=== PATIENT | female | born 1965 | race Two or more races ===

== ENCOUNTER 2017-04-16 15:07 | Emergency (ER) | payer OTHER ==
[~2017-04-16] VITALS: Ht 165.1 cm; Wt 119.7 kg
[2017-04-16 15:22] VITALS: BP 151/97
[2017-04-16 16:22] LABS: Urine Bilirubin Negative (Negative); Urine Blood Negative /uL (Negative); Urine Color Yellow (Yellow); Urine Glucose Normal (Normal); Urine Ketone Negative (Negative); Urine Nitrite Negative (Negative); Urine RBC <1 /hpf (0 - 4); Urine Squamous Epithelial Cell FEW /hpf (<5)
[2017-04-16 17:51] LABS: Eosinophils # (auto) 0.3 uL; Mean Corpuscular Hemoglobin 25.6 pg (28.0-32.0); Monocytes # (auto) 0.6 uL; Nucleated Red Blood Cells % 0.2 %
[2017-04-16 17:53] LABS: Basophils # (auto) 0.1 uL; Basophils % (auto) 0.9 % (0.0-2.0); Eosinophils % (auto) 4.8 % (0.0-7.0); Hematocrit 41.1 % (36.0-46.0); Hemoglobin 13.4 g/dL (12.2-16.2); Lymphocytes # (auto) 3.2 uL; Lymphocytes % (auto) 45.8 % (10.0-50.0); Mean Corpuscular Hgb Conc. 32.7 g/dL (32.0-36.0); Mean Corpuscular Volume 78.4 fL (80.0-100.0); Monocytes % (auto) 7.9 % (0.0-12.0); Neutrophils # (auto) 2.9 uL; Neutrophils % (auto) 40.6 % (37.0-80.0); Platelet Count (auto) 300 10^3/uL (140-450); Red Cell Distribution Width 15.9 % (11.8-14.3)
[2017-04-16 18:03] LABS: Albumin 3.7 g/dL (3.4-5.0); Anion Gap 6 (5-15); Aspartate Aminotransferase 5 U/L (15-37); BUN/Creatinine Ratio 11.4; Blood Urea Nitrogen 9 mg/dL (7-18); Calcium 9.7 mg/dL (8.5-10.1); Carbon Dioxide 28 mmol/L (21-32); Chloride 103 mmol/L (98-107); GFR African American 98 mL/min; GFR Non-African American 81 mL/min; Glucose 81 mg/dL (74-106); Magnesium 2.2 mg/dL (1.6-2.6); Sodium 137 mmol/L (136-145)
[2017-04-16 18:08] LABS: Alkaline Phosphatase 53 U/L (45-117); Bilirubin, Total 0.3 mg/dL (0.2-1.0); Total Protein 8.3 g/dL (6.4-8.2)
== END 2017-04-16 21:08 | disposition left against medical advice (07) ==
LOC: ER 15:12
DX: R07.9 Chest pain, unspecified (principal); Z53.21 Procedure and treatment not carried out due to patient leaving prior to being seen by health care provider
CPT/HCPCS: 36415; 71010; 80053; 81001; 83735; 84484; 85025; 93005

== ENCOUNTER 2017-05-01 19:13 | Emergency (ER) | payer OTHER ==
[~2017-05-01] VITALS: Ht 165.1 cm; Wt 119.3 kg
[2017-05-01 20:07] LABS: Urine RBC None Seen /hpf (0 - 4)
[2017-05-01 20:24] LABS: Basophils # (auto) 0.1 uL; Hemoglobin 13.4 g/dL (12.2-16.2); Lymphocytes # (auto) 3.1 uL; Neutrophils # (auto) 3.3 uL
[2017-05-01 20:25] LABS: Urine Bilirubin Negative (Negative); Urine Blood Negative /uL (Negative); Urine Color Straw (Yellow); Urine Glucose Normal (Normal); Urine Ketone Negative (Negative); Urine Nitrite Negative (Negative); Urine Squamous Epithelial Cell FEW /hpf (<5); Urine Urobilinogen Normal (Negative); Urine pH 6.5 (5.0-8.0)
[2017-05-01 20:26] LABS: Eosinophils # (auto) 0.4 uL; Eosinophils % (auto) 4.9 % (0.0-7.0); Hematocrit 42.3 % (36.0-46.0); Lymphocytes % (auto) 41.6 % (10.0-50.0); Mean Corpuscular Hemoglobin 24.7 pg (28.0-32.0); Mean Corpuscular Hgb Conc. 31.7 g/dL (32.0-36.0); Mean Corpuscular Volume 77.8 fL (80.0-100.0); Mean Platelet Volume 8.1 fL (6.9-10.8); Monocytes # (auto) 0.5 uL; Monocytes % (auto) 7.1 % (0.0-12.0); Neutrophils % (auto) 45.4 % (37.0-80.0); Platelet Count (auto) 292 10^3/uL (140-450); Red Cell Distribution Width 15.9 % (11.8-14.3); White Blood Cell 7.4 10^3/uL (4.4-10.8)
[2017-05-01 20:52] LABS: Albumin 3.7 g/dL (3.4-5.0); BUN/Creatinine Ratio 10.8; Bilirubin, Total 0.2 mg/dL (0.2-1.0); Calcium 9.6 mg/dL (8.5-10.1); Magnesium 2.4 mg/dL (1.6-2.6); Potassium 3.9 mmol/L (3.5-5.1); Total Protein 7.9 g/dL (6.4-8.2)
[2017-05-02 03:34] VITALS: BP 128/78
== END 2017-05-02 05:18 | disposition home or self-care (01) ==
LOC: ER 19:13
DX: R07.9 Chest pain, unspecified (principal); I10 Essential (primary) hypertension; F17.210 Nicotine dependence, cigarettes, uncomplicated
CPT/HCPCS: 36415; 71010; 80053; 81001; 83735; 84443; 84484; 85025; 93005

== ENCOUNTER 2017-05-29 13:12 | Emergency (ER) | payer OTHER ==
[~2017-05-29] VITALS: Ht 165.1 cm; Wt 117.9 kg
[2017-05-29] MEDS ORDERED: NITROGLYCERIN 0.4 MG SL TAB SL ONE (13:45)
[2017-05-29] MEDS ORDERED: ASPirin 325 MG TAB PO ONE (13:45)
[2017-05-29 14:44] LABS: Basophils # (auto) 0.1 uL; Hematocrit 43.1 % (36.0-46.0); Lymphocytes # (auto) 2.5 uL; Monocytes # (auto) 0.4 uL; Monocytes % (auto) 7.8 % (0.0-12.0)
[2017-05-29 14:46] LABS: Basophils % (auto) 1.7 % (0.0-2.0); Eosinophils # (auto) 0.4 uL; Eosinophils % (auto) 7.5 % (0.0-7.0); Hemoglobin 14.1 g/dL (12.2-16.2); Lymphocytes % (auto) 47.3 % (10.0-50.0); Mean Corpuscular Hemoglobin 25.2 pg (28.0-32.0); Mean Corpuscular Hgb Conc. 32.6 g/dL (32.0-36.0); Mean Corpuscular Volume 77.3 fL (80.0-100.0); Neutrophils # (auto) 1.9 uL; Neutrophils % (auto) 35.7 % (37.0-80.0); Platelet Count (auto) 293 10^3/uL (140-450); Red Blood Cells 5.58 10^6/uL (4.0-5.20); Red Cell Distribution Width 15.8 % (11.8-14.3); White Blood Cell 5.3 10^3/uL (4.4-10.8)
[2017-05-29 15:13] LABS: Albumin 3.7 g/dL (3.4-5.0); BUN/Creatinine Ratio 13.6; Bilirubin, Total 0.3 mg/dL (0.2-1.0); Calcium 9.2 mg/dL (8.5-10.1); Total Protein 8.1 g/dL (6.4-8.2)
[2017-05-29 16:30] VITALS: BP 117/73
== END 2017-05-29 16:47 | disposition home or self-care (01) ==
LOC: ER 13:12
DX: R07.89 Other chest pain (principal); R06.02 Shortness of breath; I10 Essential (primary) hypertension; F17.210 Nicotine dependence, cigarettes, uncomplicated
CPT/HCPCS: 36415; 71046; 80053; 84484; 85025; 93005; 94761

== ENCOUNTER 2017-07-22 16:14 | Inpatient (IN) | payer OTHER ==
[~2017-07-22] VITALS: Ht 167.6 cm; Wt 124.9 kg
[2017-07-22 16:47] LABS: Basophils # (auto) 0.1 uL; Basophils % (auto) 0.9 % (0.0-2.0); Eosinophils # (auto) 0.4 uL; Eosinophils % (auto) 5.4 % (0.0-7.0); Hematocrit 41.1 % (36.0-46.0); Hemoglobin 13.5 g/dL (12.2-16.2); Lymphocytes # (auto) 2.8 uL; Lymphocytes % (auto) 38.7 % (10.0-50.0); Mean Corpuscular Hemoglobin 25.5 pg (28.0-32.0); Mean Corpuscular Hgb Conc. 32.8 g/dL (32.0-36.0); Monocytes # (auto) 0.6 uL; Monocytes % (auto) 8.6 % (0.0-12.0); Neutrophils # (auto) 3.4 uL; Neutrophils % (auto) 46.4 % (37.0-80.0); Nucleated Red Blood Cells % 0.1 %; Platelet Count (auto) 314 10^3/uL (140-450); Red Blood Cells 5.27 10^6/uL (4.0-5.20); Red Cell Distribution Width 18.1 % (11.8-14.3); White Blood Cell 7.2 10^3/uL (4.4-10.8)
[2017-07-22 17:11] LABS: Alanine Aminotransferase 13 U/L (13-56); Albumin 3.7 g/dL (3.4-5.0); Alkaline Phosphatase 54 U/L (45-117); Anion Gap 8 (5-15); Aspartate Aminotransferase 7 U/L (15-37); BUN/Creatinine Ratio 15.6; Bilirubin, Total 0.2 mg/dL (0.2-1.0); Blood Urea Nitrogen 12 mg/dL (7-18); Calcium 9.8 mg/dL (8.5-10.1); Carbon Dioxide 26 mmol/L (21-32); Chloride 103 mmol/L (98-107); GFR African American 100 mL/min; GFR Non-African American 83 mL/min; Glucose 101 mg/dL (74-106); Sodium 137 mmol/L (136-145); Total Protein 7.8 g/dL (6.4-8.2)
[2017-07-22] MEDS ORDERED: ONDANSETRON HCL 4 MG/2 ML VIAL IV ONE (20:15)
[2017-07-22] MEDS ORDERED: ASPirin 81 mg TAB PO ONE (20:15)
[2017-07-22] MEDS ORDERED: MORPHINE SULFATE 4 MG/ML SYR/VIAL IV ONE (20:15)
[2017-07-22] MEDS ORDERED: HYDROcodone-ACET 5/325MG TAB PO PRN (21:00)
[2017-07-22] MEDS ORDERED: ONDANSETRON HCL 4 MG/2 ML VIAL IV PRN (21:00)
[2017-07-22] MEDS ORDERED: TEMAZEPAM 15 MG CAP PO PRN (21:00)
[2017-07-22 21:04] LABS: Urine Bacteria FEW /hpf (None Seen); Urine Blood 3+ /uL (Negative); Urine Specific Gravity 1.013 (1.001-1.035); Urine WBC 1 /hpf (0 - 5)
[2017-07-22 21:27] LABS: Cholesterol 198 mg/dL (< 200); HDL Cholesterol 35 mg/dL (40-59); LDL Cholesterol 144 mg/dL (< 100); Triglycerides 208 mg/dL (< 150)
[2017-07-22 22:00] VITALS: BP 127/92
[2017-07-22] MEDS ORDERED: ATORVASTATIN 20 MG TAB PO SCH (22:00)
[2017-07-22] MEDS: FAMOTIDINE 20 MG TAB PO SCH (22:43)
[2017-07-22] MEDS ORDERED: cefTRIAXone 1GM/10ml IVPUSH 10 ML IV ONE (23:30)
[2017-07-22] MEDS: ACETAMINOPHEN 325 MG TAB PO PRN (23:55)
[2017-07-22] MEDS: NITROGLYCERIN 0.4 MG SL TAB SL PRN (23:57)
[2017-07-23 05:30] VITALS: BP 103/61
[2017-07-23 05:48] LABS: Basophils # (auto) 0 uL; Eosinophils # (auto) 0.4 uL; Neutrophils # (auto) 2.8 uL; Nucleated Red Blood Cells % 0.2 %
[2017-07-23 05:52] LABS: Basophils % (auto) 0.6 % (0.0-2.0); Eosinophils % (auto) 5.6 % (0.0-7.0); Hematocrit 37.3 % (36.0-46.0); Lymphocytes # (auto) 2.6 uL; Lymphocytes % (auto) 39.9 % (10.0-50.0); Mean Corpuscular Hemoglobin 24.9 pg (28.0-32.0); Mean Corpuscular Hgb Conc. 32.3 g/dL (32.0-36.0); Mean Corpuscular Volume 77.3 fL (80.0-100.0); Monocytes # (auto) 0.7 uL; Monocytes % (auto) 11.2 % (0.0-12.0); Neutrophils % (auto) 42.7 % (37.0-80.0); Platelet Count (auto) 281 10^3/uL (140-450); Red Blood Cells 4.83 10^6/uL (4.0-5.20); Red Cell Distribution Width 17.7 % (11.8-14.3); White Blood Cell 6.6 10^3/uL (4.4-10.8)
[2017-07-23 06:21] LABS: Albumin 3.2 g/dL (3.4-5.0); Bilirubin, Total 0.3 mg/dL (0.2-1.0); Calcium 9.6 mg/dL (8.5-10.1); Total Protein 6.8 g/dL (6.4-8.2)
[2017-07-23 09:00] VITALS: BP 98/59
[2017-07-23] MEDS: cefTRIAXone 1GM/10ml IVPUSH 10 ML IV SCH (09:29)
[2017-07-23] MEDS: LISINOPRIL 20 MG TAB PO SCH (10:00)
[2017-07-23] MEDS: HCTZ 25 MG TAB PO SCH (10:00)
[2017-07-23] MEDS: ASPirin 81 mg TAB PO SCH (10:03)
[2017-07-23] MEDS: FAMOTIDINE 20 MG TAB PO SCH ×2 (10:04→21:47)
[2017-07-23] MEDS: ENOXAPARIN SOD 40 MG/0.4 ML SYRINGE SC SCH (10:35)
[2017-07-23 13:00] VITALS: BP 109/77
[2017-07-23] MEDS: ACETAMINOPHEN 325 MG TAB PO PRN (14:00)
[2017-07-23 17:00] VITALS: BP 116/78
[2017-07-23] MEDS: MORPHINE SULFATE 4 MG/ML SYR/VIAL IV PRN (20:56)
[2017-07-23 21:44] VITALS: BP 125/69
[2017-07-23] MEDS: ATORVASTATIN 20 MG TAB PO SCH (21:47)
[2017-07-24 05:00] VITALS: BP 110/70
[2017-07-24] MEDS: ACETAMINOPHEN 325 MG TAB PO PRN ×3 (05:19→19:55)
[2017-07-24 08:25] VITALS: BP 109/71
[2017-07-24] MEDS: cefTRIAXone 1GM/10ml IVPUSH 10 ML IV SCH (08:50)
[2017-07-24] MEDS: HCTZ 25 MG TAB PO SCH (10:00)
[2017-07-24] MEDS: LISINOPRIL 20 MG TAB PO SCH (10:00)
[2017-07-24] MEDS: FAMOTIDINE 20 MG TAB PO SCH ×2 (10:53→21:44)
[2017-07-24] MEDS: ASPirin 81 mg TAB PO SCH (10:53)
[2017-07-24] MEDS: ENOXAPARIN SOD 40 MG/0.4 ML SYRINGE SC SCH (10:53)
[2017-07-24 12:38] VITALS: BP 119/75
[2017-07-24 17:03] VITALS: BP 118/62
[2017-07-24] MEDS: MORPHINE SULFATE 4 MG/ML SYR/VIAL IV PRN (21:37)
[2017-07-24] MEDS: ATORVASTATIN 20 MG TAB PO SCH (21:44)
[2017-07-24] MEDS: NITROGLYCERIN 0.4 MG SL TAB SL PRN (21:44)
[2017-07-24 22:25] VITALS: BP 123/77
[2017-07-25 05:06] VITALS: BP 105/69
[2017-07-25 05:16] LABS: Basophils # (auto) 0 uL; Basophils % (auto) 0.7 % (0.0-2.0); Eosinophils # (auto) 0.4 uL; Lymphocytes # (auto) 2.8 uL; Neutrophils # (auto) 2.3 uL; White Blood Cell 6.1 10^3/uL (4.4-10.8)
[2017-07-25 05:19] LABS: Eosinophils % (auto) 6.5 % (0.0-7.0); Hematocrit 37.7 % (36.0-46.0); Hemoglobin 12.2 g/dL (12.2-16.2); Lymphocytes % (auto) 46.3 % (10.0-50.0); Mean Corpuscular Hemoglobin 25.3 pg (28.0-32.0); Mean Corpuscular Hgb Conc. 32.4 g/dL (32.0-36.0); Mean Corpuscular Volume 77.3 fL (80.0-100.0); Monocytes # (auto) 0.5 uL; Monocytes % (auto) 8.9 % (0.0-12.0); Neutrophils % (auto) 37.6 % (37.0-80.0); Nucleated Red Blood Cells % 0.2 %; Platelet Count (auto) 273 10^3/uL (140-450); Red Blood Cells 4.87 10^6/uL (4.0-5.20); Red Cell Distribution Width 17.4 % (11.8-14.3)
[2017-07-25 05:26] LABS: BUN/Creatinine Ratio 15.5; Calcium 9.5 mg/dL (8.5-10.1)
[2017-07-25 08:13] VITALS: BP 94/58
[2017-07-25] MEDS: cefTRIAXone 1GM/10ml IVPUSH 10 ML IV SCH (08:51)
[2017-07-25] MEDS: HCTZ 25 MG TAB PO SCH (09:51)
[2017-07-25] MEDS: ASPirin 81 mg TAB PO SCH (09:51)
[2017-07-25] MEDS: ENOXAPARIN SOD 40 MG/0.4 ML SYRINGE SC SCH (09:52)
[2017-07-25] MEDS: LISINOPRIL 20 MG TAB PO SCH (09:52)
[2017-07-25] MEDS: FAMOTIDINE 20 MG TAB PO SCH ×2 (09:52→21:48)
[2017-07-25 13:02] VITALS: BP 120/76
[2017-07-25 17:02] VITALS: BP 118/81
[2017-07-25] MEDS: DOCUSATE SOD 100 MG CAP PO PRN (17:57)
[2017-07-25] MEDS: ACETAMINOPHEN 325 MG TAB PO PRN (17:58)
[2017-07-25] MEDS: ATORVASTATIN 20 MG TAB PO SCH (21:48)
[2017-07-25 22:43] VITALS: BP 132/89
[2017-07-26 05:24] VITALS: BP 109/65
[2017-07-26 09:00] VITALS: BP 111/71
[2017-07-26] MEDS: cefTRIAXone 1GM/10ml IVPUSH 10 ML IV SCH (09:40)
[2017-07-26 13:00] VITALS: BP 123/62
[2017-07-26] MEDS: FAMOTIDINE 20 MG TAB PO SCH ×2 (13:52→21:30)
[2017-07-26] MEDS: LISINOPRIL 20 MG TAB PO SCH (13:52)
[2017-07-26] MEDS: ASPirin 81 mg TAB PO SCH (13:53)
[2017-07-26] MEDS: DOCUSATE SOD 100 MG CAP PO PRN ×2 (13:54→20:08)
[2017-07-26] MEDS: HCTZ 25 MG TAB PO SCH (13:54)
[2017-07-26] MEDS: ENOXAPARIN SOD 40 MG/0.4 ML SYRINGE SC SCH (13:55)
[2017-07-26 18:22] VITALS: BP 112/63
[2017-07-26] MEDS: ATORVASTATIN 20 MG TAB PO SCH (21:30)
[2017-07-26 22:00] VITALS: BP 123/75
[2017-07-27] VITALS (7 sets, daily range): BP systolic 103–132; BP diastolic 58–107
[2017-07-27] MEDS ORDERED: ADENOSINE 105 MG in GIVE UN-DILUTED 0 ML IV ONE (08:15)
[2017-07-27] MEDS: cefTRIAXone 1GM/10ml IVPUSH 10 ML IV SCH (11:37)
[2017-07-27] MEDS: ENOXAPARIN SOD 40 MG/0.4 ML SYRINGE SC SCH (11:37)
[2017-07-27] MEDS: ASPirin 81 mg TAB PO SCH (11:38)
[2017-07-27] MEDS: HCTZ 25 MG TAB PO SCH (11:39)
[2017-07-27] MEDS: FAMOTIDINE 20 MG TAB PO SCH (11:39)
[2017-07-27] MEDS: LISINOPRIL 20 MG TAB PO SCH (11:39)
[2017-07-27] MEDS ORDERED: HYDR25TA4 PO (17:49)
[2017-07-27] MEDS ORDERED: LISI-713 PO (17:49)
[2017-07-27] MEDS ORDERED: OME20T PO (17:49)
== END 2017-07-27 19:25 | disposition home or self-care (01) | DRG 198 ==
LOC: ER 16:14 → TELE-WESTW 16:15
PROVIDERS: ADMIT Nurse Practitioner; ATTEND Internal Medicine
DX: I25.10 Atherosclerotic heart disease of native coronary artery without angina pectoris (principal); Z68.41 Body mass index [BMI] 40.0-44.9, adult; I10 Essential (primary) hypertension; E66.01 Morbid (severe) obesity due to excess calories; E78.5 Hyperlipidemia, unspecified; F17.210 Nicotine dependence, cigarettes, uncomplicated; M10.9 Gout, unspecified; G47.00 Insomnia, unspecified; K59.00 Constipation, unspecified; Z87.11 Personal history of peptic ulcer disease; Z71.3 Dietary counseling and surveillance; Z53.21 Procedure and treatment not carried out due to patient leaving prior to being seen by health care provider
CPT/HCPCS: 36415; 71046; 78452; 80048; 80053; 80061; 81001; 83735; 83880; 84443; 84484; 85025; 85379; 93005; 93017; 93306; 94761; 96374; 96375; 96376; J0153; J2405

== ENCOUNTER 2018-06-16 10:44 | Emergency (ER) | payer SELFPAY ==
[~2018-06-16] VITALS: Ht 165.1 cm; Wt 119.7 kg
[~2018-06-16 10:44] MED LIST: HYDR25TA4 PO; LISI-713 PO; OME20T PO
[2018-06-16] MEDS ORDERED: ASPirin 81 mg TAB PO ONE (11:00)
[2018-06-16 12:13] LABS: Basophils # (auto) 0.1 uL; Eosinophils # (auto) 0.4 uL; Eosinophils % (auto) 8.1 % (0.0-7.0); Hemoglobin 14.1 g/dL (12.2-16.2); Lymphocytes # (auto) 2.1 uL; Lymphocytes % (auto) 40.5 % (10.0-50.0); Mean Corpuscular Hemoglobin 25.7 pg (28.0-32.0); Mean Corpuscular Hgb Conc. 32.8 g/dL (32.0-36.0); Mean Corpuscular Volume 78.3 fL (80.0-100.0); Monocytes # (auto) 0.4 uL; Monocytes % (auto) 8.4 % (0.0-12.0); Neutrophils # (auto) 2.2 uL; Nucleated Red Blood Cells % 0.1 %; Platelet Count (auto) 282 10^3/uL (140-450); White Blood Cell 5.2 10^3/uL (4.4-10.8)
[2018-06-16 12:35] LABS: Alanine Aminotransferase 12 U/L (13-56); Albumin 3.4 g/dL (3.4-5.0); Anion Gap 8 (5-15); Aspartate Aminotransferase 6 U/L (15-37); BUN/Creatinine Ratio 11.5; Blood Urea Nitrogen 9 mg/dL (7-18); Calcium 9.4 mg/dL (8.5-10.1); Carbon Dioxide 27 mmol/L (21-32); Chloride 104 mmol/L (98-107); GFR African American 99 mL/min; GFR Non-African American 81 mL/min; Glucose 84 mg/dL (74-106); Magnesium 2.4 mg/dL (1.6-2.6); Potassium 4.3 mmol/L (3.5-5.1); Sodium 139 mmol/L (136-145)
[2018-06-16 12:40] LABS: Alkaline Phosphatase 53 U/L (45-117); Bilirubin, Total 0.4 mg/dL (0.2-1.0); Total Protein 7.9 g/dL (6.4-8.2)
[2018-06-16 13:19] VITALS: BP 130/85
[2018-06-16 15:03] LABS: INR 0.96 (0.9-1.15); Partial Thromboplastin Time 27.7 sec (23.78-33.04); Prothrombin Time 10.3 sec (9.27-12.13)
== END 2018-06-16 13:25 | disposition home or self-care (01) ==
LOC: ER 10:50
DX: R07.89 Other chest pain (principal); I10 Essential (primary) hypertension; F17.210 Nicotine dependence, cigarettes, uncomplicated; Z79.899 Other long term (current) drug therapy
CPT/HCPCS: 36415; 71045; 80053; 83735; 83880; 84484; 85025; 85610; 85730; 93005; 94761

== ENCOUNTER 2020-02-17 12:54 | Emergency (ER) | payer MEDICAID, OTHER ==
[~2020-02-17] VITALS: Ht 162.6 cm; Wt 120.2 kg
[2020-02-17 14:02] LABS: Basophils # (auto) 0 10 ^3/uL (0-0.2); Eosinophils # (auto) 0.3 10 ^3/uL (0-0.8); Hemoglobin 12.4 g/dL (12.2-16.2); Monocytes # (auto) 0.4 10 ^3/uL (0-1.3); Neutrophils # (auto) 2.8 10 ^3/uL (1.6-8.6); White Blood Cell 5.7 10^3/uL (4.4-10.8)
[2020-02-17 14:03] LABS: Basophils % (auto) 0.8 % (0.0-2.0); Eosinophils % (auto) 4.7 % (0.0-7.0); Hematocrit 38.6 % (36.0-46.0); Lymphocytes # (auto) 2.3 10 ^3/uL (0.4-5.4); Lymphocytes % (auto) 39.4 % (10.0-50.0); Mean Corpuscular Volume 75.1 fL (80.0-100.0); Monocytes % (auto) 6.7 % (0.0-12.0); Neutrophils % (auto) 48.4 % (37.0-80.0); Nucleated Red Blood Cells % 0.2 %; Platelet Count (auto) 287 10^3/uL (140-450); Red Blood Cells 5.14 10^6/uL (4.0-5.20); Red Cell Distribution Width 17.5 % (11.8-14.3)
[2020-02-17 14:08] LABS: INR 0.98 (0.9-1.15); Partial Thromboplastin Time 26.2 sec (23.0-31.2)
[2020-02-17 14:12] LABS: Alanine Aminotransferase 12 U/L (13-56); Albumin 3.2 g/dL (3.4-5.0); Anion Gap 5 (5-15); Aspartate Aminotransferase 5 U/L (15-37); BUN/Creatinine Ratio 15.4; Blood Urea Nitrogen 12 mg/dL (7-18); Calcium 9.3 mg/dL (8.5-10.1); Carbon Dioxide 27 mmol/L (21-32); Chloride 109 mmol/L (98-107); GFR African American 98 mL/min; GFR Non-African American 81 mL/min; Glucose 95 mg/dL (74-106); Potassium 4.2 mmol/L (3.5-5.1); Sodium 141 mmol/L (136-145)
[2020-02-17 14:16] LABS: Alkaline Phosphatase 57 U/L (45-117); Bilirubin, Total 0.3 mg/dL (0.2-1.0)
[2020-02-17 14:26] LABS: Urine Bacteria FEW /hpf (None Seen); Urine Blood Negative /uL (Negative); Urine Mucus FEW (None Seen); Urine Specific Gravity 1.023 (1.001-1.035); Urine WBC 1 /hpf (0 - 5)
[2020-02-17 20:00] VITALS: BP 156/85
== END 2020-02-17 22:45 | disposition home or self-care (01) ==
LOC: ER 12:54
DX: R07.2 Precordial pain (principal); K21.9 Gastro-esophageal reflux disease without esophagitis; M54.12 Radiculopathy, cervical region; M47.812 Spondylosis without myelopathy or radiculopathy, cervical region; I10 Essential (primary) hypertension; M10.9 Gout, unspecified; F17.210 Nicotine dependence, cigarettes, uncomplicated
CPT/HCPCS: 36415; 71046; 72125; 80053; 81001; 84484; 85025; 85379; 85610; 85730; 93005

== ENCOUNTER 2021-11-08 11:11 | Emergency (ER) | payer MEDICAID ==
[~2021-11-08] VITALS: Ht 162.6 cm; Wt 117.5 kg
[2021-11-08 11:51] VITALS: BP 144/105
== END 2021-11-08 12:40 | disposition home or self-care (01) ==
LOC: ER 11:11
DX: I83.91 Asymptomatic varicose veins of right lower extremity (principal); E66.01 Morbid (severe) obesity due to excess calories; Z68.41 Body mass index [BMI] 40.0-44.9, adult
CPT/HCPCS: 93971

== ENCOUNTER 2022-04-24 13:19 | Inpatient (IN) | payer MEDICAID ==
[~2022-04-24] VITALS: Ht 165.1 cm; Wt 129.5 kg
[2022-04-24] MEDS ORDERED: SODIUM CHLORIDE 0.9% 1,000 ML IV ONE (13:30)
[2022-04-24 14:04] LABS: Hemoglobin 13.6 g/dL (12.2-16.2); Red Cell Distribution Width 17.1 % (11.8-14.3)
[2022-04-24 14:06] LABS: Hematocrit 41.8 % (36.0-46.0); Mean Corpuscular Hemoglobin 25.2 pg (28.0-32.0); Mean Corpuscular Hgb Conc. 32.5 g/dL (32.0-36.0); Mean Corpuscular Volume 77.7 fL (80.0-100.0); Red Blood Cells 5.38 10^6/uL (4.0-5.20); White Blood Cell 8.2 10^3/uL (4.4-10.8)
[2022-04-24 14:10] LABS: Basophils % (manual) 0 (0.0-2.0); Blast Cells 0; Metamyelocytes % 0; Myelocytes % 0; Promyelocytes % 0; Reactive Lymphocytes 0
[2022-04-24 14:24] LABS: Albumin 3.5 g/dL (3.4-5.0); Potassium 4.1 mmol/L (3.5-5.1)
[2022-04-24 14:28] LABS: BUN/Creatinine Ratio 8.5; Bilirubin, Total 0.5 mg/dL (0.2-1.0)
[2022-04-24 14:36] LABS: Band Neutrophils % (manual) 2; Eosinophils % (manual) 6 (0-7); Lymphocytes % (manual) 58 (10.0-50.0); Monocytes % (manual) 4 (0-12)
[2022-04-24] MEDS ORDERED: cefTRIAXone 1GM/50ML D5W 50 ML IV ONE (15:00)
[2022-04-24] MEDS ORDERED: metroNIDAZOLE 500MG/100ML 100 ML IV ONE (15:00)
[2022-04-24] MEDS ORDERED: ONDANSETRON HCL 4 MG/2 ML VIAL IV PRN (19:00)
[2022-04-24] MEDS: metroNIDAZOLE 500MG/100ML 100 ML IV SCH (22:00)
[2022-04-24] MEDS: SODIUM CHLORIDE 0.9% 1,000 ML IV SCH (23:41)
[2022-04-25] MEDS: MORPHINE SULFATE INJ 2 MG/ml SYRG IV PRN ×2 (01:31→08:46)
[2022-04-25] MEDS: hydrALAZINE HCL 20 MG/ML VL IV PRN (01:31)
[2022-04-25] MEDS: metroNIDAZOLE 500MG/100ML 100 ML IV SCH ×3 (06:06→22:00)
[2022-04-25] MEDS: SODIUM CHLORIDE 0.9% 1,000 ML IV SCH (06:26)
[2022-04-25 07:12] LABS: Eosinophils # (auto) 0.3 10 ^3/uL (0-0.8); Mean Corpuscular Hgb Conc. 32.5 g/dL (32.0-36.0); Monocytes # (auto) 0.6 10 ^3/uL (0-1.3); Neutrophils # (auto) 4.4 10 ^3/uL (1.6-8.6)
[2022-04-25 07:15] LABS: Basophils # (auto) 0.1 10 ^3/uL (0-0.2); Eosinophils % (auto) 3.5 % (0.0-7.0); Hematocrit 38.4 % (36.0-46.0); Hemoglobin 12.5 g/dL (12.2-16.2); Lymphocytes # (auto) 1.9 10 ^3/uL (0.4-5.4); Lymphocytes % (auto) 26.6 % (10.0-50.0); Mean Corpuscular Hemoglobin 25.3 pg (28.0-32.0); Mean Corpuscular Volume 77.8 fL (80.0-100.0); Monocytes % (auto) 8.9 % (0.0-12.0); Nucleated Red Blood Cells % 0.2 %; Red Blood Cells 4.94 10^6/uL (4.0-5.20); Red Cell Distribution Width 17.3 % (11.8-14.3); White Blood Cell 7.3 10^3/uL (4.4-10.8)
[2022-04-25 07:24] LABS: Calcium 9.4 mg/dL (8.5-10.1); Potassium 3.9 mmol/L (3.5-5.1)
[2022-04-25 07:26] LABS: BUN/Creatinine Ratio 15.9; Bilirubin, Total 0.6 mg/dL (0.2-1.0); Total Protein 6.4 g/dL (6.4-8.2)
[2022-04-25] MEDS: cefTRIAXone 1GM/50ML D5W 50 ML IV SCH (09:30)
[2022-04-25] MEDS: PANTOPRAZOLE 40 MG/10 ML VIAL INJ IV SCH (11:30)
[2022-04-25] MEDS ORDERED: METOPROLOL TARTRATE 1MG/1ML-5ML VIAL IV PRN (13:30)
[2022-04-25] MEDS ORDERED: D5W/SOD CHL 0.45% 1,000 ML IV SCH (13:30)
[2022-04-25] MEDS: D5W/SOD CHL 0.45%/KCL 20MEQ 1,000 ML IV SCH ×2 (18:48→21:50)
[2022-04-25 20:00] VITALS: BP 166/95
[2022-04-25] MEDS: guaiFENesin-CODEINE Liq 5 ML UD PO PRN (21:23)
[2022-04-25 22:00] VITALS: BP 148/64
[2022-04-26 05:00] VITALS: BP 135/78
[2022-04-26] MEDS: metroNIDAZOLE 500MG/100ML 100 ML IV SCH ×3 (06:00→21:16)
[2022-04-26] MEDS: D5W/SOD CHL 0.45%/KCL 20MEQ 1,000 ML IV SCH ×3 (06:10→22:05)
[2022-04-26 06:46] LABS: Basophils # (auto) 0 10 ^3/uL (0-0.2); Basophils % (auto) 0.4 % (0.0-2.0); Eosinophils % (auto) 4.9 % (0.0-7.0); Lymphocytes # (auto) 1.6 10 ^3/uL (0.4-5.4); Neutrophils # (auto) 2.7 10 ^3/uL (1.6-8.6)
[2022-04-26 06:50] LABS: Eosinophils # (auto) 0.3 10 ^3/uL (0-0.8); Hematocrit 37.7 % (36.0-46.0); Lymphocytes % (auto) 31.8 % (10.0-50.0); Mean Corpuscular Hgb Conc. 31.9 g/dL (32.0-36.0); Mean Corpuscular Volume 78.3 fL (80.0-100.0); Monocytes # (auto) 0.5 10 ^3/uL (0-1.3); Monocytes % (auto) 10.3 % (0.0-12.0); Neutrophils % (auto) 52.6 % (37.0-80.0); Nucleated Red Blood Cells % 0.1 %; Red Blood Cells 4.82 10^6/uL (4.0-5.20); Red Cell Distribution Width 17.2 % (11.8-14.3); White Blood Cell 5.2 10^3/uL (4.4-10.8)
[2022-04-26 07:39] VITALS: BP 157/90
[2022-04-26 08:00] VITALS: BP 157/90
[2022-04-26 08:21] LABS: INR 1.03 (0.9-1.15); Partial Thromboplastin Time 27.6 sec (24.6-33.4)
[2022-04-26] MEDS: cefTRIAXone 1GM/50ML D5W 50 ML IV SCH (08:44)
[2022-04-26] MEDS: PANTOPRAZOLE 40 MG/10 ML VIAL INJ IV SCH (08:44)
[2022-04-26] MEDS: MORPHINE SULFATE INJ 2 MG/ml SYRG IV PRN (10:59)
[2022-04-26] MEDS: ENOXAPARIN SOD 40 MG/0.4 ML SYRINGE SC SCH (11:02)
[2022-04-26 12:00] VITALS: BP 158/86
[2022-04-26] MEDS ORDERED: LISINOPRIL 20 MG TAB PO ONE (13:15)
[2022-04-26 16:00] VITALS: BP 139/89
[2022-04-26 20:00] VITALS: BP 177/92
[2022-04-26] MEDS: guaiFENesin-CODEINE Liq 5 ML UD PO PRN (21:18)
[2022-04-27 05:00] VITALS: BP 124/77
[2022-04-27] MEDS: metroNIDAZOLE 500MG/100ML 100 ML IV SCH ×3 (05:37→21:11)
[2022-04-27 09:00] VITALS: BP 131/79
[2022-04-27] MEDS: cefTRIAXone 1GM/50ML D5W 50 ML IV SCH (09:25)
[2022-04-27] MEDS: PANTOPRAZOLE 40 MG/10 ML VIAL INJ IV SCH (09:26)
[2022-04-27] MEDS: ENOXAPARIN SOD 40 MG/0.4 ML SYRINGE SC SCH (10:00)
[2022-04-27] MEDS: LISINOPRIL 20 MG TAB PO SCH (12:17)
[2022-04-27] MEDS: D5W/SOD CHL 0.45%/KCL 20MEQ 1,000 ML IV SCH (12:18)
[2022-04-27 13:00] VITALS: BP 146/84
[2022-04-27] MEDS ORDERED: MORPHINE SULFATE INJ 2 MG/ml SYRG IV ONE (13:30)
[2022-04-27 17:00] VITALS: BP 140/85
[2022-04-27 20:00] VITALS: BP 172/82
[2022-04-27] MEDS: guaiFENesin-CODEINE Liq 5 ML UD PO PRN (20:58)
[2022-04-27] MEDS: hydrALAZINE HCL 20 MG/ML VL IV PRN (20:59)
[2022-04-27 22:00] VITALS: BP 172/82
[2022-04-28] MEDS: D5W/SOD CHL 0.45%/KCL 20MEQ 1,000 ML IV SCH ×2 (00:45→15:46)
[2022-04-28] MEDS: metroNIDAZOLE 500MG/100ML 100 ML IV SCH ×3 (05:26→21:49)
[2022-04-28 06:01] LABS: Potassium 3.9 mmol/L (3.5-5.1)
[2022-04-28 06:05] LABS: Albumin 2.9 g/dL (3.4-5.0); BUN/Creatinine Ratio 11.6; Calcium 9.6 mg/dL (8.5-10.1)
[2022-04-28 06:10] LABS: Bilirubin, Total 0.5 mg/dL (0.2-1.0); Total Protein 6.3 g/dL (6.4-8.2)
[2022-04-28 09:00] VITALS: BP 144/84
[2022-04-28] MEDS: LISINOPRIL 20 MG TAB PO SCH (10:05)
[2022-04-28] MEDS: ENOXAPARIN SOD 40 MG/0.4 ML SYRINGE SC SCH (10:06)
[2022-04-28] MEDS: cefTRIAXone 1GM/50ML D5W 50 ML IV SCH (10:06)
[2022-04-28] MEDS: PANTOPRAZOLE 40 MG/10 ML VIAL INJ IV SCH (10:06)
[2022-04-28] MEDS ORDERED: OMNIPAQUE ORAL SOLN 500ml 12mg/ml PO ONE (10:40)
[2022-04-28 13:00] VITALS: BP 148/85
[2022-04-28 17:00] VITALS: BP 150/85
[2022-04-28] MEDS ORDERED: IOHEXOL 300 MG/ML 100ML BOTTLE IJ ONE (17:54)
[2022-04-28 20:10] VITALS: BP 135/68
[2022-04-28 22:00] VITALS: BP 135/68
[2022-04-29 05:00] VITALS: BP 126/77
[2022-04-29] MEDS: metroNIDAZOLE 500MG/100ML 100 ML IV SCH ×2 (05:46→14:00)
[2022-04-29] MEDS: D5W/SOD CHL 0.45%/KCL 20MEQ 1,000 ML IV SCH ×2 (07:59→16:45)
[2022-04-29 09:00] VITALS: BP 135/74
[2022-04-29] MEDS: PANTOPRAZOLE 40 MG/10 ML VIAL INJ IV SCH (09:40)
[2022-04-29] MEDS: ENOXAPARIN SOD 40 MG/0.4 ML SYRINGE SC SCH (09:40)
[2022-04-29] MEDS: cefTRIAXone 1GM/50ML D5W 50 ML IV SCH (09:40)
[2022-04-29] MEDS: LISINOPRIL 20 MG TAB PO SCH (09:41)
[2022-04-29 13:00] VITALS: BP 139/82
[2022-04-29] MEDS ORDERED: OME20T PO (14:44)
[2022-04-29 17:00] VITALS: BP 135/82
== END 2022-04-29 18:41 | disposition home or self-care (01) ==
LOC: ER 13:19 → OVERFLOW 18:55 → WEST WING 04-25 18:56
PROVIDERS: ADMIT Nurse Practitioner Family; ATTEND Hospitalist
DX: K80.20 Calculus of gallbladder without cholecystitis without obstruction (principal); E66.01 Morbid (severe) obesity due to excess calories; I10 Essential (primary) hypertension; F17.210 Nicotine dependence, cigarettes, uncomplicated; M10.9 Gout, unspecified; K21.9 Gastro-esophageal reflux disease without esophagitis; K27.9 Peptic ulcer, site unspecified, unspecified as acute or chronic, without hemorrhage or perforation; Z20.822 Contact with and (suspected) exposure to COVID-19; K57.90 Diverticulosis of intestine, part unspecified, without perforation or abscess without bleeding; N39.0 Urinary tract infection, site not specified; Z79.899 Other long term (current) drug therapy; Z87.11 Personal history of peptic ulcer disease; Z68.42 Body mass index [BMI] 45.0-49.9, adult; I83.91 Asymptomatic varicose veins of right lower extremity
CPT/HCPCS: 36415; 74176; 74177; 74181; 76705; 78226; 80053; 83605; 83690; 84484; 85007; 85025; 85027; 85610; 85730; 86850; 86900; 86901; 87040; 87426; C9113; G0378; J0696; J3490

== ENCOUNTER 2023-09-07 16:41 | Inpatient (IN) | payer MEDICAID ==
[~2023-09-07] VITALS: Ht 160 cm; Wt 125.4 kg
[2023-09-07 17:06] LABS: Basophils # (auto) 0.1 10 ^3/uL (0-0.2); Eosinophils # (auto) 0.3 10 ^3/uL (0-0.8); Eosinophils % (auto) 3.9 % (0.0-7.0); Hematocrit 43.4 % (36.0-46.0); Hemoglobin 13.7 g/dL (12.2-16.2); Lymphocytes # (auto) 3.3 10 ^3/uL (0.4-5.4); Lymphocytes % (auto) 41.1 % (10.0-50.0); Mean Corpuscular Hemoglobin 24.5 pg (28.0-32.0); Mean Corpuscular Hgb Conc. 31.7 g/dL (32.0-36.0); Mean Corpuscular Volume 77.4 fL (80.0-100.0); Monocytes # (auto) 0.8 10 ^3/uL (0-1.3); Monocytes % (auto) 9.9 % (0.0-12.0); Neutrophils # (auto) 3.5 10 ^3/uL (1.6-8.6); Neutrophils % (auto) 44.1 % (37.0-80.0); Nucleated Red Blood Cells % 0.1 %; Red Blood Cells 5.61 10^6/uL (4.0-5.20); Red Cell Distribution Width 16.1 % (11.8-14.3)
[2023-09-07] MEDS: ASPirin 81 mg TAB PO ONE (17:08)
[2023-09-07 17:11] VITALS: PULSE 84; RESP 16; O2SAT 96
[2023-09-07 17:26] LABS: Albumin 4.4 g/dL (3.2-4.8); Alkaline Phosphatase 68 U/L (46-116); Anion Gap 4 (5-15); Aspartate Aminotransferase < 8 U/L (13-40); BUN/Creatinine Ratio 14.9 (10.0-20.0); Bilirubin, Total 0.4 mg/dL (0.2-1.0); Blood Urea Nitrogen 11 mg/dL (9-23); Calcium 10.9 mg/dL (8.7-10.4); Carbon Dioxide 29 mmol/L (20-30); Chloride 105 mmol/L (98-107); Glucose 93 mg/dL (74-106); Potassium 4.4 mmol/L (3.5-5.1); Sodium 138 mmol/L (136-145); Total Protein 6.9 g/dL (5.7-8.2)
[2023-09-07 17:30] LABS: Alanine Aminotransferase < 9 U/L (7-40)
[2023-09-07] MEDS ORDERED: MORPHINE SULFATE INJ 2 MG/ml SYRG IV PRN (21:00)
[2023-09-07] MEDS ORDERED: NITROGLYCERIN 0.4 MG SL TAB SL PRN (21:00)
[2023-09-07] MEDS ORDERED: DOCUSATE SOD 100 MG CAP PO PRN (21:00)
[2023-09-07] MEDS ORDERED: ACETAMINOPHEN 325 MG TAB PO PRN (21:00)
[2023-09-07] MEDS ORDERED: ONDANSETRON HCL 4 MG/2 ML VIAL IV PRN (21:00)
[2023-09-07] MEDS ORDERED: GABA-1250 PO (21:35)
[2023-09-07] MEDS: ONDANSETRON HCL 4 MG/2 ML VIAL IV ONE (21:38)
[2023-09-07] MEDS: PANTOPRAZOLE 40 MG/10 ML VIAL INJ IV ONE (21:38)
[2023-09-07] MEDS: ATORVASTATIN 20 MG TAB PO SCH (21:39)
[2023-09-07] MEDS: MORPHINE SULFATE INJ 2 MG/ml SYRG IV ONE (21:39)
[2023-09-07 22:11] VITALS: PULSE 92; RESP 13; O2SAT 97
[2023-09-07] MEDS: GABAPENTIN 300 MG CAP PO SCH (22:55)
[2023-09-07] MEDS: IOHEXOL 350 MG/ML 100ML IJ ONE (23:48)
[2023-09-08] VITALS (9 sets, daily range): BP systolic 113–149; BP diastolic 61–97; PULSE 66–98; RESP 10–20; TEMP 97–97.8; O2SAT 90–99
[2023-09-08 05:14] LABS: Urine Bacteria None Seen /hpf (None Seen)
[2023-09-08 05:16] LABS: Hematocrit 40.5 % (36.0-46.0); Lymphocytes # (auto) 3.1 10 ^3/uL (0.4-5.4); Monocytes # (auto) 0.7 10 ^3/uL (0-1.3); Nucleated Red Blood Cells % 0.1 %
[2023-09-08 05:18] LABS: Basophils # (auto) 0.1 10 ^3/uL (0-0.2); Eosinophils # (auto) 0.3 10 ^3/uL (0-0.8); Eosinophils % (auto) 4.4 % (0.0-7.0); Hemoglobin 13.1 g/dL (12.2-16.2); Lymphocytes % (auto) 43.3 % (10.0-50.0); Mean Corpuscular Hemoglobin 25.3 pg (28.0-32.0); Mean Corpuscular Hgb Conc. 32.4 g/dL (32.0-36.0); Mean Corpuscular Volume 77.9 fL (80.0-100.0); Monocytes % (auto) 9.3 % (0.0-12.0); Red Cell Distribution Width 16.3 % (11.8-14.3); White Blood Cell 7.2 10^3/uL (4.4-10.8)
[2023-09-08 05:31] LABS: Alkaline Phosphatase 60 U/L (46-116); Anion Gap 3 (5-15); Aspartate Aminotransferase 9 U/L (13-40); BUN/Creatinine Ratio 11.8 (10.0-20.0); Blood Urea Nitrogen 9 mg/dL (9-23); Calcium 10.4 mg/dL (8.7-10.4); Carbon Dioxide 29 mmol/L (20-30); Chloride 106 mmol/L (98-107); Glucose 106 mg/dL (74-106); Potassium 4.4 mmol/L (3.5-5.1); Sodium 138 mmol/L (136-145)
[2023-09-08 05:32] LABS: Bilirubin, Total 0.5 mg/dL (0.2-1.0); Total Protein 6.6 g/dL (5.7-8.2)
[2023-09-08 05:39] LABS: Urine Blood Negative /uL (Negative); Urine Clarity Clear (Clear); Urine Color Light-Yellow (Yellow); Urine Mucus FEW (None Seen); Urine Protein, UAD Negative (Negative); Urine Specific Gravity 1.018 (1.001-1.035); Urine Urobilinogen Normal (Negative); Urine WBC 1 /hpf (0 - 5); Urine pH 5.5 (5.0-9.0)
[2023-09-08 05:48] LABS: Alanine Aminotransferase < 9 U/L (7-40)
[2023-09-08 05:59] LABS: Triglycerides 144 mg/dL (< 150)
[2023-09-08 06:00] LABS: LDL Cholesterol 141 mg/dL (< 100)
[2023-09-08 06:01] LABS: Cholesterol 196 mg/dL (< 200); HDL Cholesterol 39 mg/dL (40-59)
[2023-09-08] MEDS: PANTOPRAZOLE 40 MG/10 ML VIAL INJ IV SCH (10:18)
[2023-09-08] MEDS: ASPirin-EC 81 mg tab PO SCH (10:19)
[2023-09-08] MEDS: ENOXAPARIN SOD 40 MG/0.4 ML SYRINGE SC SCH (10:19)
[2023-09-08] MEDS: LISINOPRIL 20 MG TAB PO SCH (10:20)
[2023-09-08] MEDS: hydroCHLOROthiazide 25 MG TAB PO SCH (10:20)
[2023-09-08] MEDS ORDERED: OMEP20TA PO (12:06)
[2023-09-08] MEDS ORDERED: HYDR-4902 PO (12:07)
[2023-09-08] MEDS ORDERED: CYCL-839 PO (12:07)
[2023-09-08 14:50] LABS: INR 1.02 (0.9-1.15); Partial Thromboplastin Time 29.2 SEC (24.5-34.5); Prothrombin Time 10.8 sec (9.3-11.8)
[2023-09-08] MEDS: LIDOCAINE 2%HCL (LOCAL ANESTH.) INJ 20ML MDV ONE (14:53)
[2023-09-08] MEDS: IODIXANOL 320MG/ML 100ML BTL IV ONE (14:53)
[2023-09-08] MEDS: HEPARIN SODIUM (PORCINE) 5000 UNITS/ML 1ML VIAL ONE (14:55)
[2023-09-08] MEDS: VERAPAMIL 2.5MG/ML INJ 2ML VIAL IV ONE (14:55)
[2023-09-08] MEDS: ANGIOMAX 250 MG VIAL IV ONE (14:55)
[2023-09-08] MEDS: SODIUM CHL 0.9% 0 ML ONE (14:56)
[2023-09-08] MEDS: MIDAZOLAM HCL 2MG/2ML 2ml VIAL (1mg/ml) ONE (14:56)
[2023-09-08] MEDS: fentaNYL CITRATE 100 MCG/2 ML VL ONE (14:56)
[2023-09-08] MEDS ORDERED: CYCL-611 PO (16:48)
[2023-09-08] MEDS ORDERED: OMEP1CAP70 PO (16:48)
[2023-09-08] MEDS ORDERED: LISI40TA16 PO (16:48)
[2023-09-08] MEDS ORDERED: HYDR1TAB97 PO (16:48)
[2023-09-08] MEDS ORDERED: HYDR25TA5 PO (19:33)
[2023-09-08] MEDS: MORPHINE SULFATE INJ 2 MG/ml SYRG IV PRN (21:34)
[2023-09-09 01:00] VITALS: BP 156/89; PULSE 93; RESP 20; TEMP 98.2; O2SAT 97
[2023-09-09] MEDS: HYDROcodone-ACET 5/325MG TAB PO PRN (01:49)
[2023-09-09 04:40] VITALS: BP 107/65; PULSE 82; RESP 19; TEMP 97.2; O2SAT 95
[2023-09-09 08:05] VITALS: PULSE 88; O2SAT 98
[2023-09-09 08:30] VITALS: BP 141/81; PULSE 82; RESP 17; TEMP 98.1
[2023-09-09 08:40] VITALS: BP 141/81; PULSE 82; RESP 17; TEMP 98.1; O2SAT 98
[2023-09-09] MEDS ORDERED: ATOR-507 PO (12:02)
[2023-09-09 12:37] VITALS: BP 141/81; PULSE 72; RESP 18; TEMP 98.1; O2SAT 98
== END 2023-09-09 14:17 | disposition home or self-care (01) | DRG 190 ==
LOC: ER 16:41 → TELE 20:59 → TELE-WESTW 09-08 17:50
PROVIDERS: ADMIT Nurse Practitioner Family; ATTEND Internal Medicine Geriatric Medicine
PROC: B211YZZ Fluoroscopy of Multiple Coronary Arteries using Other Contrast (ICD-10-PCS; principal; 2023-09-08)
PROC: 4A023N7 Measurement of Cardiac Sampling and Pressure, Left Heart, Percutaneous Approach (ICD-10-PCS; 2023-09-08)
PROC: B34HZZZ Ultrasonography of Right Upper Extremity Arteries (ICD-10-PCS; 2023-09-08)
DX: I21.29 ST elevation (STEMI) myocardial infarction involving other sites (principal); E04.1 Nontoxic single thyroid nodule; E66.01 Morbid (severe) obesity due to excess calories; E78.5 Hyperlipidemia, unspecified; I10 Essential (primary) hypertension; K44.9 Diaphragmatic hernia without obstruction or gangrene; J43.9 Emphysema, unspecified; K21.9 Gastro-esophageal reflux disease without esophagitis; M10.9 Gout, unspecified; F17.210 Nicotine dependence, cigarettes, uncomplicated; Z79.899 Other long term (current) drug therapy; Z87.11 Personal history of peptic ulcer disease; Z71.6 Tobacco abuse counseling; Z68.42 Body mass index [BMI] 45.0-49.9, adult
CPT/HCPCS: 36415; 71045; 71250; 80053; 80061; 81001; 84443; 84484; 84702; 85025; 85379; 85610; 85730; 86850; 86900; 86901; 93005; 93306; 93458; 96374; 96375; 99152; 99291; C9113; G0378; J2250; J2405; Q9967